=== PATIENT | male | born 2000 | race Caucasian/White ===

== ENCOUNTER 2022-08-11 13:10 | Observation (INO) ==
[2022-08-11 14:39] LABS: Basophils # (auto) 0.03 K/uL (0-0.2); Basophils % (auto) 0.2 %; Hematocrit (blood only) 43.9 % (40.1-51.0); Hemoglobin 15.1 g/dl (14.0-18.0); Immature Granulocytes # (auto) 0.03 K/uL (0.00-0.02); Immature Granulocytes % (auto) 0.2 %; Lymphocytes # (auto) 1.13 K/uL (1.2-3.4); Lymphocytes % (auto) 7.5 %; Mean Corpuscular Hemoglobin 28.7 pg (25.0-34.0); Mean Corpuscular Hgb Conc 34.4 g/dL (32.0-36.0); Mean Corpuscular Volume 83.5 fL (80.0-100.0); Mean Platelet Volume 10.2 fL (9.4-12.4); Monocytes # (auto) 1.06 K/uL (0.24-0.82); Neutrophils # (auto) 12.89 K/uL (1.4-6.5); Neutrophils % (auto) 85.1 %; Platelet Count 360 K/uL (130-400); RDW Coefficient of Variation 12.7 % (11.5-14.5); RDW Standard Deviation 38.2 fL (36.4-46.3); Red Blood Count 5.26 M/uL (4.63-6.08); White Blood Count 15.14 K/ul (4.8-10.8)
[2022-08-11 15:03] LABS: Albumin Globulin Ratio 1.7 (0.9-2); Albumin Level 4.9 gm/dl (3.4-5.0); BUN Creatinine Ratio 11.4 (10-20); Bilirubin,Total 1.2 mg/dl (0.2-1.0); Calcium 10.1 mg/dl (8.5-10.1); Creatinine Clr Calc Pharmacy 137.3 ml/min; Est GFR (African American) 145.7 ml/min; Est GFR (Non-African American) 125.7 ml/min; Globulin 2.9 gm/dl (2.5-4.0); Potassium 3.4 mmol/L (3.5-5.1); Total Protein 7.8 gm/dl (6.0-8.3)
[2022-08-11] MEDS ORDERED: OPTIRAY 350 100ml IV ONE (16:29)
--- NOTE | 2022-08-11 16:49 | CT Scan Report ---
ABDOMEN AND PELVIS CT WITH IV CONTRAST CT DOSE: 657.92 mGycm HISTORY: Right lower quadrant abdominal pain. TECHNIQUE: Multiaxial CT images of the abdomen and pelvis were performed following the use of intrave nous contrast. A dose lowering technique was utilized adhering to the principles of ALARA. COMPARISON STUDY: None. FINDINGS: The lung bases are clear. No pneumoperitoneum. No pneumatosis. There is a left L5 pars defe ct noted. The liver, gallbladder, spleen, adrenal glands, pancreas, and kidneys are unremarkable. No hydronephrosis. The main portal vein is patent. Normal caliber abdominal aorta. No retroperitoneal ly mphadenopathy. The bladder is unremarkable. No evidence for bowel obstruction. The appendix is dilate d and thick-walled measuring up to 1 cm in diameter. There is mild periappendiceal fat stranding and a few small appendicoliths. No perforation or abscess at this time. This is consistent with acute dutch endicitis. IMPRESSION: Acute appendicitis. ACT 112: Negative or not required by law. Electronically signed by: Mayur Garg M.D. 08/11/2022 4:47 PM
[2022-08-11] MEDS ORDERED: SODIUM CHLORIDE 0.9% 1000ML 1,000 ML IV ONE ×2 (16:56→18:12)
--- NOTE | 2022-08-11 17:09 | Emergency Department Note ---
History of Present Illness General Chief complaint: Abdominal Pain Stated complaint: LOWER RT ABDOMINAL PAIN Time Seen by Provider: 08/11/22 16:40 History of Present Illness Maximum Pain Intensity: 5 This is a 22-year-old male who presents with vomiting diarrhea and right lower abdominal pain. His symptoms initially began last night with nausea and vomiting. He developed some central abdominal pain which has moved into the right lower area today. He vomited about 4 times last night and several times today. He has had multiple episodes of nonbloody diarrhea. He took some Pepto-Bismol for his symptoms which helped for about 5 minutes and then his symptoms returned. He has not checked himself or if he has not felt like he had a fever. He denies any sore throat or sinus congestion or cough. Denies any history of abdominal surgeries. Denies any headache, syncope, chest pain or shortness of breath. No history of Crohn's, ulcerative colitis, or irritable bowel syndrome States he has a history of a mild heart murmur when he was 6 years old. Has not had a cardiac work-up since. [employer] law student. Allergies Allergy/AdvReac Type Severity Reaction Status Date / Time No Known Allergies Allergy Unverified 08/11/22 21:43 Past Med/Surg History Medical History No pertinent past medical history Surgical History No pertinent past surgical history Social History Smoking Status: Never smoker Second Hand Exposure: No; Do You Dip or Chew Tobacco: No; Tobacco Cessation Education Requested by Patient: No Hx Alcohol Use: Yes Hx Substance Use: No Preferred Language: Romanian Communication Ability: Effective Cold Storage Superintendent Required: No Beliefs That Will Affect Care: None Current Living Situation: Alone Other Information That Helps Us Care for You: No Feels Safe at Home: Yes Safety Concerns: Feels Safe At This Time Assistive Devices: None Review of Systems See HPI for pertinent positives & negatives. and A total of 10 systems reviewed and were otherwise negative Physical Exam Vital Signs Vital Signs - 24 hr 08/11/22 13:35 08/11/22 16:59 08/11/22 17:00 Temperature 96.8 F L Temperature Source Temporal Artery Scan Pulse Rate 111 H Pulse Rate [Left Apical] 145 H Pulse Rhythm [Left Apical] Regular Pulse Strength [Left Apical] Normal Respiratory Rate 20 20 Respiratory Effort / Characteristics Non-Labored Spontaneous Non-Labored Spontaneous Respiratory Depth Normal Normal Respiratory Pattern Blood Pressure 123/74 Blood Pressure [Right Arm] 125/64 Blood Pressure Mean 90 Blood Pressure Mean [Right Arm] 84 Blood Pressure Position [Right Arm] Pulse Oximetry 99 99 99 Oxygen Delivery Method Room Air Room Air Room Air Sepsis Recent Fever Within 48 Hours No Sepsis New/Unexplained Change in Mental Status N/A Sepsis Action Taken by Nursing No Action Required 08/11/22 18:06 08/11/22 18:44 08/11/22 19:56 Temperature 98.1 F Temperature Source Oral Pulse Rate Pulse Rate [Left Apical] 130 H 137 H 136 H Pulse Rhythm [Left Apical] Regular Pulse Strength [Left Apical] Normal Respiratory Rate 20 20 20 Respiratory Effort / Characteristics Non-Labored Spontaneous Non-Labored Spontaneous Non-Labored Spontaneous Respiratory Depth Normal Normal Normal Respiratory Pattern Blood Pressure Blood Pressure [Right Arm] 128/66 134/57 L Blood Pressure Mean Blood Pressure Mean [Right Arm] 86 82 Blood Pressure Position [Right Arm] Pulse Oximetry 100 99 99 Oxygen Delivery Method Room Air Room Air Room Air Sepsis Recent Fever Within 48 Hours Sepsis New/Unexplained Change in Mental Status Sepsis Action Taken by Nursing 08/11/22 21:22 Temperature 98.2 F Temperature Source Oral Pulse Rate Pulse Rate [Left Apical] 125 H Pulse Rhythm [Left Apical] Regular Pulse Strength [Left Apical] Normal Respiratory Rate 18 Respiratory Effort / Characteristics Non-Labored Spontaneous Respiratory Depth Normal Respiratory Pattern Regular Blood Pressure Blood Pressure [Right Arm] 115/49 L Blood Pressure Mean Blood Pressure Mean [Right Arm] 71 Blood Pressure Position [Right Arm] Lying Pulse Oximetry 94 Oxygen Delivery Method Room Air Sepsis Recent Fever Within 48 Hours Sepsis New/Unexplained Change in Mental Status Sepsis Action Taken by Nursing CONSTITUTIONAL: Well developed, well nourished, in no acute distress. EYES: conjunctivae normal, extraocular muscles intact. ENMT: External ears normal. Nose with normal external appearance, no congestion. Oral mucous membranes moist. Oropharynx normal. NECK: Full active range of motion. RESPIRATORY: Breathing unlabored and symmetric. Lungs clear to auscultation bila terally. No wheeze, rales, or rhonchi. CARDIOVASCULAR: Tachycardic rate and regular rhythm. No murmurs, rubs, or gallops. ABDOMEN: Normal bowel sounds. Abdomen is soft. There is reproducible tende rness in the right lower quadrant. Negative rebound sign. Negative psoas, straight leg, or Rovsing sign. No CVA tenderness bilaterally. MUSCULOSKELETAL: Moves all extremities at all joints without pain or difficulty. No cyanosis or edema. SKIN: [place], warm, dry. No rash NEUROLOGIC: Awake, alert, oriented. Gaze is conjugate. Face symmetric, speech normal. Moves head and all four extremities spontaneously. PSYCHIATRIC: Appropriate. Normal affect Course Administered Medications Lactated Ringer's (Lr) 1,000 mls @ 80 mls/hr IV .[id number] SIGIFREDO Stop: 09/10/22 22:35 Last Admin: 08/11/22 23:24 Dose: 80 mls/hr Documented By: MARISELA Discontinued Medications Bacitracin (Bacitracin Oint 15 Gm Tube) Confirm Administered Dose 45 appln .ROUTE .STK-MED ONE Stop: 08/11/22 20:33 Last Admin: 08/11/22 21:13 Dose: 10 appln Documented By: NOEMÍ Bupivacaine HCl (Bupivacaine 0.5 % 5 Mg/1 Ml Mpf 30ml Vial) Confirm Administered Dose 30 ml .ROUTE .STK-MED ONE Stop: 08/11/22 20:33 Last Admin: 08/11/22 21:17 Dose: 10 ml Documented By: NOEMÍ Sodium Chloride (Nss 1000ml) 1,000 mls @ 999 mls/hr IV .Q1H1M ONE Stop: 08/11/22 17:56 Last Infusion: 08/11/22 19:30 Dose: 0 mls/hr Documented By: Admin: 08/11/22 17:20 Dose: 999 mls/hr Documented By: DOTTIE Piperacillin Sod/Tazobactam Sod (Zosyn) 4.5 gm in 120 mls @ 240 mls/hr IV NOW ONE Stop: 08/11/22 17:41 Last Infusion: 08/11/22 18:07 Dose: 0 mls/hr Documented By: Admin: 08/11/22 17:20 Dose: 240 mls/hr Documented By: TW Sodium Chloride (Nss 1000ml) 1,000 mls @ 999 mls/hr IV .Q1H1M ONE Stop: 08/11/22 19:12 Last Infusion: 08/11/22 22:55 Dose: 0 mls/hr Documented By: Admin: 08/11/22 18:44 Dose: 999 mls/hr Documented By: DOTTIE Ioversol (Optiray 350 100ml) 83 ml IV ONCE ONE Stop: 08/11/22 16:30 Last Admin: 08/11/22 16:29 Dose: 83 ml Documented By: JODIE Lidocaine HCl (Lidocaine 1% Local 20 Ml Vial) Confirm Administered Dose 20 ml .ROUTE .STK-MED ONE Stop: 08/11/22 20:33 Last Admin: 08/11/22 21:13 Dose: 10 ml Documented By: NOEMÍ Morphine Sulfate (Morphine Sulfate 4 Mg/Ml 1 Ml Carp\Vial) 4 mg IV NOW STA Stop: 08/11/22 17:26 Last Admin: 08/11/22 17:55 Dose: 4 mg Documented By: TW Ondansetron HCl (Ondansetron Inj 2 Mg/Ml 2 Ml Vial) 4 mg IV NOW STA Stop: 08/11/22 17:26 Last Admin: 08/11/22 17:55 Dose: 4 mg Documented By: TW Medical Decision Making Differential Diagnosis Appendicitis, mesenteric adenitis, gastroenteritis, irritable bowel syndrome, Crohn's disease, ulcerative colitis, diverticulitis, UTI, pyelonephritis, renal colic, bowel gas, constipation, inguinal adenopathy, testicular torsion, epididymitis, orchitis, among other pathology Medical Records Attestation: I reviewed the patient's medical records. Laboratory Data Result diagrams: 08/11/22 14:21 08/11/22 14:21 Lab Results 08/11/22 08/11/22 08/11/22 Range/Units 14:21 14:21 17:03 WBC 15.14 H (4.8-10.8) K/ul RBC 5.26 (4.63-6.08) M/uL Hgb 15.1 (14.0-18.0) g/dl Hct 43.9 (40.1-51.0) % MCV 83.5 (80.0-100.0) fL MCH 28.7 (25.0-34.0) pg MCHC 34.4 (32.0-36.0) g/dL RDW Std Deviation 38.2 (36.4-46.3) fL RDW Coeff of Amie 12.7 (11.5-14.5) % Plt Count 360 (130-400) K/uL MPV 10.2 (9.4-12.4) fL Immature Gran % (Auto) 0.2 % Neut % (Auto) 85.1 % Lymph % (Auto) 7.5 % Ashley % (Auto) 7.0 % Eos % (Auto) 0.0 % Baso % (Auto) 0.2 % Neut # (Auto) 12.89 H (1.4-6.5) K/uL Lymph # (Auto) 1.13 L (1.2-3.4) K/uL [place] # (Auto) 1.06 H (0.24-0.82) K/uL Eos # (Auto) 0.00 (0-0.50) K/uL Baso # (Auto) 0.03 (0-0.2) K/uL Immature Gran # (Auto) 0.03 H (0.00-0.02) K/uL Sodium 137 (136-145) mmol/L Potassium 3.4 L (3.5-5.1) mmol/L Chloride 105 (98-107) mmol/L Carbon Dioxide 21 (21-32) mmol/L Anion Gap 11 (3-11) BUN 9 (6-23) mg/dl Creatinine 0.79 (0.6-1.4) mg/dl Est Cr Clr Drug Dosing 137.3 ml/min Est GFR ( Amer) 145.7 ml/min Est GFR (Non-Af Amer) 125.7 ml/min BUN/Creatinine Ratio 11.4 (10-20) Glucose 111 H (70-99(Fasting)) mg/dl Calcium 10.1 (8.5-10.1) mg/dl Total Bilirubin 1.2 H (0.2-1.0) mg/dl AST 21 (13-39) U/L ALT 28 (7-52) U/L Alkaline Phosphatase 81 (34-104) U/L Total Protein 7.8 (6.0-8.3) gm/dl Albumin 4.9 (3.4-5.0) gm/dl Globulin 2.9 (2.5-4.0) gm/dl Albumin/Globulin Ratio 1.7 (0.9-2) Lipase 22 (11-82) U/L Urine Color Urine Appearance (Clear) Urine pH (4.5-7.5) Ur Specific [place] (1.000-1.030) Urine Protein (Negative) Urine Glucose (UA) (Negative) Urine Ketones (Negative) Urine Blood (Negative) Urine Nitrite (Negative) Urine Bilirubin (Negative) Urine Urobilinogen (Negative) Ur Leukocyte Esterase (Negative) SARS-CoV-2, RNA, NAAT NEGATIVE (NEGATIVE) 08/11/22 Range/Units 18:05 WBC (4.8-10.8) K/ul RBC (4.63-6.08) M/uL Hgb (14.0-18.0) g/dl Hct (40.1-51.0) % MCV (80.0-100.0) fL MCH (25.0-34.0) pg MCHC (32.0-36.0) g/dL RDW Std Deviation (36.4-46.3) fL RDW Coeff of Amie (11.5-14.5) % Plt Count (130-400) K/uL MPV (9.4-12.4) fL Immature Gran % (Auto) % Neut % (Auto) % Lymph % (Auto) % Ashley % (Auto) % Eos % (Auto) % Baso % (Auto) % Neut # (Auto) (1.4-6.5) K/uL Lymph # (Auto) (1.2-3.4) K/uL [place] # (Auto) (0.24-0.82) K/uL Eos # (Auto) (0-0.50) K/uL Baso # (Auto) (0-0.2) K/uL Immature Gran # (Auto) (0.00-0.02) K/uL Sodium (136-145) mmol/L Potassium (3.5-5.1) mmol/L Chloride (98-107) mmol/L Carbon Dioxide (21-32) mmol/L Anion Gap (3-11) BUN (6-23) mg/dl Creatinine (0.6-1.4) mg/dl Est Cr Clr Drug Dosing ml/min Est GFR ( Amer) ml/min Est GFR (Non-Af Amer) ml/min BUN/Creatinine Ratio (10-20) Glucose (70-99(Fasting)) mg/dl Calcium (8.5-10.1) mg/dl Total Bilirubin (0.2-1.0) mg/dl AST (13-39) U/L ALT (7-52) U/L Alkaline Phosphatase (34-104) U/L Total Protein (6.0-8.3) gm/dl Albumin (3.4-5.0) gm/dl Globulin (2.5-4.0) gm/dl Albumin/Globulin Ratio (0.9-2) Lipase (11-82) U/L Urine Color Yellow Urine Appearance Clear (Clear) Urine pH 7.0 (4.5-7.5) Ur Specific [place] > 1.045 H (1.000-1.030) Urine Protein Negative (Negative) Urine Glucose (UA) Negative (Negative) Urine Ketones Trace H (Negative) Urine Blood Negative (Negative) Urine Nitrite Negative (Negative) Urine Bilirubin Negative (Negative) Urine Urobilinogen Negative (Negative) Ur Leukocyte Esterase Negative (Negative) SARS-CoV-2, RNA, NAAT (NEGATIVE) Imaging Data Radiologist's Impression: Abdomen/Pelvis CT 08/11/22 16:[address] WITH IV CONTRAST CT DOSE: 657.92 mGycm HISTORY: Right lower quadrant abdominal pain. TECHNIQUE: Multiaxial CT images of the abdomen and pelvis were performed following the use of intravenous contrast. A dose lowering technique was utilized adhering to the principles of ALARA. COMPARISON STUDY: None. FINDINGS: The lung bases are clear. No pneumoperitoneum. No pneumatosis. There is a left L5 pars defect noted. The liver, gallbladder, spleen, adrenal glands, pancreas, and kidneys are unremarkable. No hydronephrosis. The main portal vein is patent. Normal caliber abdominal aorta. No retroperitoneal lymphadenopathy. The bladder is unremarkable. No evidence for bowel obstruction. The appendix is dilated and thick-walled measuring up to 1 cm in diameter. There is mild p eriappendiceal fat stranding and a few small appendicoliths. No perforation or abscess at this time. This is consistent with acute appendicitis. IMPRESSION: Acute appendicitis. ACT 112: Negative or not required by law. Electronically signed by: Mayur Garg M.D. 08/11/2022 4:47 PM MDM Narrative 22-year-old male presents with nausea, vomiting, diarrhea, and central abdominal pain that has migrated into the right lower quadrant. Symptoms began yesterday. Overall patient relatively well-appearing, nontoxic. He is tachycardic. He has reproducible tenderness in the right lower quadrant, negative rebound, psoas, Rovsing, or straight leg raise. Labs demonstrate a leukocytosis at 15. Mild hypokalemia 3.4 likely secondary to GI losses. CT abdomen pelvis obtained demonstrating acute appendicitis. Patient stated initially his pain was 7 out of 10 while in the waiting room however it was much improved after being placed in the examination room. Certainly concerning for possible perforation although this is not visualized on the CT scan. I did mention this to the surgeon Dr. Ribera. Patient declined anything for nausea or pain initially however did finally accept a dose of morphine and Zofran. He did receive IV fluids. Zosyn administered. Patient remained persistently tachycardic in the 130s. Otherwise remained hemodynamically stable. Consulted with general surgery Dr. Ribera who evaluated the patient at bedside and will take the patient to the OR. Impression & Plan Acute appendicitis Discharge Plan Visit Data Chief Complaint: Abdominal Pain Stated Complaint: LOWER RT ABDOMINAL PAIN ED Provider: Darius Hernández ED Midlevel Provider: Mingo Irizarry Discharge Problem: Acute appendicitis Patient Disposition: Admitted As Inpatient Condition: Fair Discharge Instructions Interventions: ED Discharge Assessment Last Done: 08/11/22 19:57 : Acute appendicitis Qualifiers: Acute appendicitis type: with localized peritonitis Appendicitis gangrene presence: without gangrene Appendicitis perforation presence: without perforation Appendicitis abscess presence: unspecified whether abscess present Qualified Code(s): K35.30 - Acute appendicitis with localized peritonitis, without perforation or gangrene
[2022-08-11] MEDS ORDERED: PIPERACILLIN/TAZOBACTAM 4.5 GM/120 ML BAG IV ONE (17:12)
[2022-08-11] MEDS ORDERED: ONDANSETRON INJ 2 MG/ML 2 ML VIAL IV STA (17:25)
[2022-08-11] MEDS ORDERED: MoRPHine SULFATE 4 MG/ML 1 ML CARP\\VIAL IV STA (17:25)
[2022-08-11 18:10] LABS: Appearance Urine Clear (Clear); Bilirubin Urine Negative (Negative); Blood Urine Negative (Negative); Color Urine Yellow; Glucose Urine UA Negative (Negative); Ketones Urine Trace (Negative); Leukocyte Esterase Urine Negative (Negative); Nitrite Urine Negative (Negative); Protein Urine Negative (Negative); Specific Gravity Urine > 1.045 (1.000-1.030); Urobilinogen Urine Negative (Negative)
--- NOTE | 2022-08-11 19:37 | Surgery Consultation ---
Date of Consultation August 11, 2022 Assessment & Plan (1) Acute appendicitis: pt is a 22 year-old male who presents with one day history acute RLQ pain, IMP: acute appendicitis, plan, I recommend to do laparoscopic appendectomy, possible open, D/W benefits, risks and alternatives of the surgery, the risks - infection, bleeding, injury other organs, abscess, incisional hernia, sepsis and bowel obstruction, pt understood, he and his Mom agreed with surgery, pt signed informed consent, I answered all questions, pre-op antibiotic, History of Present Illness Reason for Consultation: appendicitis, Requesting Physician: Edgar Peters roderrick History of Present Illness Chief complaint: Abdominal Pain Stated complaint: LOWER RT ABDOMINAL PAIN Time Seen by Provider: 08/11/22 16:40 History of Present Illness Maximum Pain Intensity: 5 This is a 22-year-old male who presents with vomiting diarrhea and right lower abdominal pain. His symptoms initially began last night with nausea and vomiting. He developed some central abdominal pain which has moved into the right lower area today. He vomited about 4 times last night and several times today. He has had multiple episodes of nonbloody diarrhea. He took some Pepto- Bismol for his symptoms which helped for about 5 minutes and then his symptoms returned. He has not checked himself or if he has not felt like he had a fever. He denies any sore throat or sinus congestion or cough. Denies any history of abdominal surgeries. Denies any headache, syncope, chest pain or shortness of breath. No history of Crohn's, ulcerative colitis, or irritable bowel syndrome States he has a history of a mild heart murmur when he was 6 years old. Has not had a cardiac work-up since. [employer] law student. I ( Etienne higgins MD ) got a call for consult acute appendicitis, I reviewed pt's H/P, labs and CT scan with pt, Past Med/Surg History Medical History No pertinent past medical history Surgical History No pertinent past surgical history Social History Smoking Status: Never smoker Feels Safe at Home: Yes Review of Systems See HPI for pertinent positives & negatives. and A total of 10 systems reviewed and were otherwise negative Patient History Medical History No pertinent past medical history Surgical History No pertinent past surgical history Social History Smoking Status: Never smoker Feels Safe at Home: Yes Physical Exam Constitutional: WD/WN, vitals as above Eyes: PERRL, conjunctivae normal, anicteric sclerae Neck: trachea midline, no thyromegaly Respiratory: normal respiratory effort, lungs clear to auscultation Cardiovascular: RRR, no murmur, no edema Gastrointestinal (Abdomen): soft, tenderness at RLQ with rebound pain, no distend, BS+ Musculoskeletal: no cyanosis or clubbing, extremities motor strength 5/5 Skin: no rashes, warm and dry Neurologic: patellar DTR's 2+ bilat, sensation intact Psychiatric: A+Ox3, euthymic affect Results & Data ([facility]) Vital Signs (Past 12 Hours) Vital Signs Temp Pulse Pulse Resp BP BP Pulse Ox 08/11/22 18:44 137 H 20 99 08/11/22 18:06 130 H 20 128/66 100 08/11/22 17:00 99 08/11/22 16:59 145 H 20 125/64 99 08/11/22 13:35 36 C L 111 H 20 123/74 99 O2 Del Method 08/11/22 18:44 Room Air 08/11/22 18:06 Room Air 08/11/22 17:00 Room Air 08/11/22 16:59 Room Air 08/11/22 13:35 Room Air Laboratory Results Abnormal lab results 08/11/22 08/11/22 08/11/22 Range/Units 14:21 14:21 18:05 WBC 15.14 H (4.8-10.8) K/ul Neut # (Auto) 12.89 H (1.4-6.5) K/uL Lymph # (Auto) 1.13 L (1.2-3.4) K/uL [place] # (Auto) 1.06 H (0.24-0.82) K/uL Immature Gran # (Auto) 0.03 H (0.00-0.02) K/uL Potassium 3.4 L (3.5-5.1) mmol/L Glucose 111 H (70-99(Fasting)) mg/dl Total Bilirubin 1.2 H (0.2-1.0) mg/dl Ur Specific [place] > 1.045 H (1.000-1.030) Urine Ketones Trace H (Negative) Diagnostic Findings ABDOMEN AND PELVIS CT WITH IV CONTRAST CT DOSE: 657.92 mGycm HISTORY: Right lower quadrant abdominal pain. TECHNIQUE: Multiaxial CT images of the abdomen and pelvis were performed following the use of intravenous contrast. A dose lowering technique was utilized adhering to the principles of ALARA. COMPARISON STUDY: None. FINDINGS: The lung bases are clear. No pneumoperitoneum. No pneumatosis. There is a left L5 pars defect noted. The liver, gallbladder, spleen, adrenal glands, pancreas, and kidneys are unremarkable. No hydronephrosis. The main portal vein is patent. Normal caliber abdominal aorta. No retroperitoneal lymphadenopathy. The bladder is unremarkable. No evidence for bowel obstruction. The appendix is dilated and thick-walled measuring up to 1 cm in diameter. There is mild periappendiceal fat stranding and a few small appendicoliths. No perforation or abscess at this time. This is consistent with acute appendicitis. IMPRESSION: Acute appendicitis. (1) Acute appendicitis Acute appendicitis type: with localized peritonitis Appendicitis abscess presence: unspecified whether abscess present Appendicitis gangrene presence: without gangrene Appendicitis perforation presence: without perforation Qualified Code(s): K35.30 - Acute appendicitis with localized peritonitis, without perforation or gangrene
[2022-08-11] MEDS ORDERED: HYDROmorphone INJ 2 MG/ML SYR/VIAL IV PRN (19:41)
[2022-08-11] MEDS ORDERED: ePHEDrine sulfate 50 MG/ML AMP IV PRN (19:41)
[2022-08-11] MEDS ORDERED: fentaNYL citrate 100 MCG/2 ML VIAL IV PRN (19:41)
[2022-08-11] MEDS ORDERED: PROMETHAZINE HCL 6.25 MG in SODIUM CHLORIDE 0.9% 50 ML IV PRN (19:41)
[2022-08-11] MEDS ORDERED: ATROPINE SULFATE 0.1 MG/ML 10ML SYR IV PRN (19:41)
[2022-08-11] MEDS ORDERED: ONDANSETRON INJ 2 MG/ML 2 ML VIAL IV PRN (19:41)
--- NOTE | 2022-08-11 19:47 | Anesthesiology Consultation ---
Date of Service August 11, 2022 Assessment & Plan (1) Encounter for pre-operative examination: Chart Review Chart Review: Acceptable Risk for Surgery and Patient NOT seen in Pre Admission Testing Consults Requested none History Surgery Operation Date: 08/11/22 19:15 Proposed Procedures p Laparoscopic Appendectomy - Etienne Ribera MD Height/Weight Height: 5 ft 5 in Weight: 76 kg Past Medical History Medical History No pertinent past medical history Past Surgical History Surgical History No pertinent past surgical history Social History Smoking Status: Never smoker Physical Exam Vital Signs Last Vital Signs Temp 36.7 C 08/11/22 19:56 Pulse 136 H 08/11/22 19:56 Resp 20 08/11/22 19:56 BP 134/57 L 08/11/22 19:56 Pulse Ox 99 08/11/22 19:56 O2 Del Method 08/11/22 19:56 Testing Laboratory Results 08/11/22 14:21 08/11/22 14:21 Urine Color Yellow 08/11/22 18:05 Urine Appearance Clear (Clear) 08/11/22 18:05 Urine pH 7.0 (4.5-7.5) 08/11/22 18:05 Ur Specific [place] > 1.045 (1.000-1.030) H 08/11/22 18:05 Urine Protein Negative (Negative) 08/11/22 18:05 Urine Glucose (UA) Negative (Negative) 08/11/22 18:05 Urine Ketones Trace (Negative) H 08/11/22 18:05 Urine Nitrite Negative (Negative) 08/11/22 18:05 Ur Leukocyte Esterase Negative (Negative) 08/11/22 18:05
--- NOTE | 2022-08-11 19:53 | History & Physical Bridge Note ---
Date of Service August 11, 2022 History & Physical Bridge Note I have examined the patient, reviewed the History & Physical and in the interval since the performance of the History & Physical I have noted the following changes of clinical significance: no changes noted
[2022-08-11] MEDS ORDERED: ONDANSETRON INJ 2 MG/ML 2 ML VIAL ONE (19:59)
[2022-08-11] MEDS ORDERED: LIDOCAINE 2% MPF LOCAL 5 ML VIAL INFIL ONE (19:59)
[2022-08-11] MEDS ORDERED: DEXAMETHASONE SOD INJ 4 MG/ML VIAL ONE (19:59)
[2022-08-11] MEDS ORDERED: PROPOFOL IV EMULSION 10 MG/ML 20 ML VIAL IV ONE (19:59)
[2022-08-11] MEDS ORDERED: GLYCOPYRROLATE 0.2 MG/ML VIAL ONE (20:00)
[2022-08-11] MEDS ORDERED: MIDAZOLAM HCL 1 MG/ML 2ML VIAL ONE (20:00)
[2022-08-11] MEDS ORDERED: ROCURONIUM BROMIDE 10 MG/ML 5 ML VIAL IV ONE (20:00)
[2022-08-11] MEDS ORDERED: SUCCINYLCHOLINE 100MG/5ML SYR IV ONE (20:00)
[2022-08-11] MEDS ORDERED: NEOSTIGMINE METHYLSULFATE 1 MG/ML 10ML VIAL ONE (20:00)
[2022-08-11] MEDS ORDERED: fentaNYL citrate 100 MCG/2 ML VIAL ONE (20:00)
[2022-08-11] MEDS ORDERED: BACITRACIN OINT 15 GM TUBE ONE (20:32)
[2022-08-11] MEDS ORDERED: BUPIVACAINE 0.5 % 5 MG/1 ML MPF 30ML VIAL ONE (20:32)
[2022-08-11] MEDS ORDERED: LIDOCAINE 1% LOCAL 20 ML VIAL ONE (20:32)
[2022-08-11] MEDS ORDERED: diphenhydrAMINE 50 MG/ML VIAL ONE (20:41)
--- NOTE | 2022-08-11 21:15 | Post Operative Brief Note ---
Immediate Post Op Note v1 Date of Surgery August 11, 2022 Pre & Post Diagnosis Operation Date: 08/11/22 19:15 Pre-Op Diagnosis: Acute Appendicits Post-Op Diagnosis: Acute Appendicits I identified the patient and participated in the time-out.: Yes Procedure Operation Date: 08/11/22 19:15 Actual Procedures p Laparoscopic Appendectomy - Etienne Ribera MD Surgeon Etienne Ribera MD Road Engineer certified surgical first assistant Estimated Blood Loss 10 Findings Consistent with Post-Op Diagnosis acute appendicitis, gangrenous appendix Fluids 600ml Specimens appendix Anesthesia Type General Complications none Disposition Accompanied Patient To Recovery: Yes
--- NOTE | 2022-08-11 21:42 | Anesthesiology Progress Note ---
Date of Service August 11, 2022 Anesthesia Post Procedure Vital Signs Vital Signs: Temp Pulse Pulse Resp BP BP Pulse Ox 08/11/22 19:56 36.7 C 136 H 20 134/57 L 99 08/11/22 18:44 137 H 20 99 08/11/22 18:06 130 H 20 128/66 100 08/11/22 17:00 99 08/11/22 16:59 145 H 20 125/64 99 08/11/22 13:35 36 C L 111 H 20 123/74 99 O2 Del Method 08/11/22 19:56 Room Air 08/11/22 18:44 Room Air 08/11/22 18:06 Room Air 08/11/22 17:00 Room Air 08/11/22 16:59 Room Air 08/11/22 13:35 Room Air Transfer of Care Handoff Completed per policy Notes Mental Status: alert / awake / arousable and participated in evaluation Patient Amnestic to Procedure: Yes Nausea / Vomiting: adequately controlled Pain: adequately controlled Airway Patency, RR, SpO2: stable & adequate BP & HR: stable & adequate Hydration State: stable & adequate Anesthetic Complications: no major complications apparent and Pt Satisfied with anesthetic care
[2022-08-11] MEDS ORDERED: LACTATED RINGER'S 1,000 ML IV SCH (22:36)
[2022-08-11] MEDS ORDERED: HYDROmorphone INJ 0.5 MG/0.5 ML SYR IV PRN (22:36)
[2022-08-11] MEDS ORDERED: oxyCODONE/ACETAMINOPHEN 5mg/325mg TAB PO PRN (22:36)
[2022-08-11] MEDS: PIPERACILLIN/TAZOBACTAM 3.375 GM in DEXTROSE 5% 100 ML IV SCH (23:37)
[2022-08-11] MEDS ORDERED: Flu Vaccine (Fluarix) 0.5mL SYR (Standard Dose) IM ONE (23:45)
[2022-08-12] MEDS: PIPERACILLIN/TAZOBACTAM 3.375 GM in DEXTROSE 5% 100 ML IV SCH (06:02)
[2022-08-12] MEDS ORDERED: IBUPROFEN 600 MG TAB PO PRN (07:45)
[2022-08-12] MEDS ORDERED: ACETAMINOPHEN 325 MG TAB PO PRN (07:45)
[2022-08-12] MEDS ORDERED: ONDANSETRON INJ 2 MG/ML 2 ML VIAL IV PRN (07:45)
--- NOTE | 2022-08-12 08:04 | Operative Report (OR) ---
PREOPERATIVE DIAGNOSIS: Acute appendicitis. POSTOPERATIVE DIAGNOSIS: Acute appendicitis. OPERATION: Laparoscopic appendectomy. SURGEON: Etienne Ribera MD. ANESTHESIA: General. ESTIMATED BLOOD LOSS: About 10 mL. FINDINGS: Acute appendicitis, gangrene appendix. COMPLICATIONS: None. INDICATIONS FOR THE PROCEDURE: This is a 22-year-old gentleman who presented with acute right lower quadrant pain. The patient had a CT scan diagnosis of acute appendicitis. I recommend to do laparoscopic appendectomy, possible open. I did talk to the patient about the benefit, risk, alternate procedure. I indicated the risks may include, but not limited to such as bleeding, infection, abscess, bowel obstruction, incisional hernia, injury to other organs. The patient understands. He signed informed consent and I answered all questions. DETAILS OF PROCEDURE: After we identified the patient and verified the procedure, we brought the patient to the OR, put the patient in the supine position on the OR table. The patient received SCDs on bilateral legs to prevent DVT. Also, the patient received 3.375 grams Zosyn IV for prophylactic antibiotic. The patient received general anesthesia without difficulty. The abdomen was prepped and draped in routine sterile fashion. After timeout, I injected the local anesthesia by using 1% lidocaine mixed with 0.5% Marcaine just above the umbilicus. Then, I made a small incision just above umbilicus, opened fascia, opened peritoneum. Under direct vision, put a Irineo trocar in, connected to CO2 to create pneumoperitoneum, flow rate at 6 liters per minute, pressure not more than 14 mmHg. Once we got a nice pneumoperitoneum, we put a camera in, looked around the abdomen, shows appendix with significant inflammation with gangrene appendix, confirmed diagnosis of acute appendicitis. Once we confirmed the diagnosis, I put another two 5 mm trocars on the left lower quadrant area, then we used the Harmonic to take down the appendiceal, rechecked, no active bleeding. Then, I used a 45 mm Endo-VÍCTOR stapler for transection around the base of appendix, rechecked the staple line, intact and no leak, no active bleeding. Then, we removed the appendix through the catch bag. Then, we reinserted the Irineo trocar in, connected to CO2 to create pneumoperitoneum, again looked around the abdomen it shows staple line intact. No leak and no active bleeding. Then, we removed all trocars under direct vision. Before we removed all trocars, we suctioned the free fluid at pelvic area. After we removed all trocars under direct vision, no active bleeding from the trocar site. Pneumoperitoneum was released. I closed the umbilical incision, the fascial layer by using 2-0 Vicryl [id number] x2, closed subcutaneous layer by using 2-0 Vicryl interruptedly, closed skin by using 4-0 Vicryl continuous running, closed two 5 mm trocars skin only by using 4-0 Vicryl. Then, we put the dressing on. The patient tolerated the procedure well. All instrument, needle and sponge counts were correct x2 at the end of the case. The patient was transferred to recovery room in stable condition. The specimen was sent to pathology. After the procedure, I did talk to the patient's family member about the OR finding and the procedure we did. They understand. Job ID: [id number] MTDD
[2022-08-12 09:17] LABS: Basophils # (auto) 0.01 K/uL (0-0.2); Basophils % (auto) 0.1 %; Hematocrit (blood only) 40.4 % (40.1-51.0); Hemoglobin 13.8 g/dl (14.0-18.0); Immature Granulocytes # (auto) 0.06 K/uL (0.00-0.02); Immature Granulocytes % (auto) 0.5 %; Lymphocytes # (auto) 0.62 K/uL (1.2-3.4); Lymphocytes % (auto) 4.8 %; Mean Corpuscular Hemoglobin 28.7 pg (25.0-34.0); Mean Corpuscular Hgb Conc 34.2 g/dL (32.0-36.0); Mean Platelet Volume 10.4 fL (9.4-12.4); Monocytes # (auto) 0.64 K/uL (0.24-0.82); Neutrophils # (auto) 11.47 K/uL (1.4-6.5); Neutrophils % (auto) 89.6 %; Platelet Count 316 K/uL (130-400); RDW Coefficient of Variation 12.9 % (11.5-14.5); RDW Standard Deviation 39.8 fL (36.4-46.3); Red Blood Count 4.81 M/uL (4.63-6.08)
[2022-08-12 10:25] LABS: Albumin Globulin Ratio 1.6 (0.9-2); Albumin Level 4.4 gm/dl (3.4-5.0); BUN Creatinine Ratio 9.2 (10-20); Bilirubin,Total 1.5 mg/dl (0.2-1.0); Calcium 9.8 mg/dl (8.5-10.1); Creatinine Clr Calc Pharmacy 124.8 ml/min; Est GFR (Non-African American) 120.8 ml/min; Globulin 2.8 gm/dl (2.5-4.0); Potassium 3.9 mmol/L (3.5-5.1); Total Protein 7.2 gm/dl (6.0-8.3)
--- NOTE | 2022-08-12 10:30 | Discharge Summary ---
Date of Service August 12, 2022 Admission HPI Per Admitting Provider This is a 22-year-old male who presents with vomiting diarrhea and right lower abdominal pain. His symptoms initially began last night with nausea and vomiting. He developed some central abdominal pain which has moved into the right lower area today. He vomited about 4 times last night and several times today. He has had multiple episodes of nonbloody diarrhea. He took some Pepto- Bismol for his symptoms which helped for about 5 minutes and then his symptoms returned. He has not checked himself or if he has not felt like he had a fever. He denies any sore throat or sinus congestion or cough. Denies any history of abdominal surgeries. Denies any headache, syncope, chest pain or shortness of breath. No history of Crohn's, ulcerative colitis, or irritable bowel syndrome States he has a history of a mild heart murmur when he was 6 years old. Has not had a cardiac work-up since. 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 I ( Etienne higgins MD ) got a call for consult acute appendicitis, I reviewed pt's H/P, labs and CT scan with pt, Principal Diagnosis Acute appendicitis Discharge Exam Constitutional WD/WN, vitals as above cooperative and comfortable; no acute distress and not ill appearing Neck normal visual inspection and trachea midline Respiratory normal respiratory effort; no respiratory distress Gastrointestinal (Abdomen) Inspection/Auscultation: abdomen normal to inspection and + abdominal surgical incision (covered with clean and dry dressings); abdomen not distended Percussion/Palpation: + abdomen tender (mild at incision sites) and abdomen soft; no guarding and abdomen not rigid Skin no rashes, warm and dry Psychiatric A+Ox3, euthymic affect Discharge Data Allergies Allergy/AdvReac Type Severity Reaction Status Date / Time No Known Allergies Allergy Unverified 08/11/22 21:43 Consultations 08/11/22 19:07 ED Decision to Admit Stat Procedures Performed Operation Date: 08/11/22 19:15 Actual Procedures p Laparoscopic Appendectomy - Etienne Higgins MD Ordered Studies 08/11/22 16:12 CT Abd and Pelvis [CT abd pelvis IV con only] Stat Hospital Course (1) Acute appendicitis: Patient taken to operating for laparoscopic appendectomy by Dr. Higgins. Patient found to have gangrenous acute appendicitis without perforation or rupture. Patient tolerated procedure well and was transferred to recovery room and then to medical/surgical floor for postoperative care. Diet was advanced as tolerated, activity as tolerated, IV and PO pain management as needed. POD # 1 afebrile, vss, postop pain minimal and not requiring any pain medication. tolerated advancement of diet. Patient was discharged home on POD # 1 in stable condition. Total Time Total Time Spent Total Time Spent (In Minutes): 20 Total Time Includes: Examination of the Patient, Discharge Planning and Medication Reconciliation Discharge Plan Discharge Items Patient Disposition: Home - Self-Care Reason For Visit: LOWER RT ABDOMINAL PAIN Discharge Diagnosis: Acute appendicitis Condition on Discharge: Good Activity: Per Instructions section Non-emergency contact: Primary Care Provider and Surgeon Call non-emergency contact if: you have any medication questions, your pain is not controlled, your pain is worsening, you have a fever, your temperature is above 101, your wound has increased redness, your wound has increased drainage and your wound pain has increased Follow-up/Referrals: Etienne Higgins MD [Physician] - (Follow-up with Dr. Higgins or Shima Ding PA-C in 2 weeks) PCP,DUNG [Physician] - Diet: Regular Addtl Attending Provider Instructions: Post-Surgical ~Discharge Instructions Activity Recommendations: - lifting limitation: (20 pounds for 4 weeks), - exercise/sex/sports limit: (nonstrenuous for 2 weeks), - driving or machine use limit: (none for 1 week or until pain free and no longer taking narcotic pain medication), - Shower/bathe limit: (february shower beginning Wednesday) Diet: - Resume previous diet SPECIAL CARE INSTRUCTIONS: - May on Wednesday, sponge bath around incisions and wash hair in meantime. On Wednesday, remove outer dressings and shower. Let water run over area and pat dry. - Leave steri strips on for one week and then remove. - Call the surgeon's office with any questions or concerns - - (ex. temperature higher than 101 degrees F, excessive bleeding or pain). MEDICATIONS: - Resume previous medications unless instructed otherwise by your surgeon. - May alternate extra strength Tylenol and Ibuprofen as needed for mild to moderate pain -650 mg Tylenol every 6 hours as needed - Ibuprofen 600 mg every 6 hours as needed (take with food) - Percocet 1 every 6 hours, as needed for moderate to severe pain - May need to take a daily stool softener (Colace) while taking narcotic pain medication to prevent constipation or straining. Drink plenty of water daily. FOLLOW UP VISIT: - If not already scheduled, please call the office to schedule a two week follow-up appointment. Office number Pending Studies at Discharge: Yes (appendix pathology, will be reviewed at follow-up visit) Stand-Alone Forms: [facility], Smoking Cessation Medications and DC Order Prescriptions: New oxycodone-acetaminophen 5-325 mg tablet 1 tab PO Q6H PRN (Reason: pain) Qty: 5 0RF amoxicillin-pot clavulanate 875-125 mg tablet 1 tab PO BID Qty: 10 0RF Discharge Orders: Discharge Order (Routine); Ordered 08/12/22 Ordered By: Shima Ding Admission Data Admit Date/Time: 08/11/22 21:23 Attending Provider: Etienne Higgins Admit Provider: Etienne Higgins Primary Care Provider: [facility] Other Providers: Etienne Higgins
== END 2022-08-12 13:20 | disposition home or self-care (01) ==
LOC: ED 13:10 → 3N 19:57 → OR 19:57
DX: K35.30 Acute appendicitis with localized peritonitis, without perforation or gangrene